=== PATIENT | male | born 1950 | race Hispanic/Latino ===

== ENCOUNTER → 2025-07-31 | Emergency (ER) | payer OTHER, MEDICARE ==
[~2025-07-31] VITALS: Ht 160 cm; Wt 49.9 kg
[2025-07-31 05:51] LABS: IMMATURE GRANULOCYTE ABSOLUTE 0.01 K/uL (0-1); NUCLEATED RED BLOOD CELLS 0.0 % (0.0-0.19); PLATELET COUNT (AUTO) 161 K/uL (130-400); RED BLOOD CELL COUNT(AUTO) 4.39 MIL/uL (4.50-6.20); RED CELL DISTRIBUTION WIDTH 13.2 % (11.0-15.5); WHITE BLOOD COUNT (AUTO) 6.4 K/uL (4.8-10.8)
[2025-07-31 05:58] LABS: CREATININE 0.7 mg/dL (0.5-1.3); GLOMERULAR FILTR. RATE CALC 95.0 mL/min (>90); GLUCOSE,RANDOM 92.0 mg/dL (70-105); SODIUM SERUM 140.0 mmol/L (136-145); UREA NITROGEN, BLOOD 20.0 mg/dL (7-18)
--- NOTE | 2025-07-31 06:05 | ERN ---
General Chief Complaint: Chest Pain Stated Complaint: CHEST PAIN RADIATING TO NECK Time Seen by MD: 05:32 Source: patient History of Present Illness Initial Comments 74-year-old male with history of coronary artery disease and a arrhythmias admitted to hospital in [place] (I think) approximately six months ago with CHF comes to the hospital today because of chest pain that is been unremitting for the last 12 hours and has now radiated down his left arm and right neck. No shortness of breath good oxygenation on room air. He has been compliant with his meds and there has been no changes to his medications. Allergies: Coded Allergies: No Known Allergies (Unverified Allergy, Unknown, 07/18/14) Past Medical History Past Medical History: CAD, CHF, Hypertension Past Surgical History: Other Surgical History Other: [facility] 10/21/2024, NO STENTS Constitutional: (-) chills, (-) diaphoresis, (-) fever, (-) malaise, (-) weakness, (-) other documentation EENTM: (-) eye pain, (-) blurred vision, (-) tearing, (-) double vision, (-) ear pain, (-) ear discharge, (-) nose pain, (-) nose congestion, (-) throat pain, (-) Throat swelling, (-) mouth pain, (-) tooth pain, (-) mouth swelling, (-) other documentation Cardiovascular: (+) chest pain Gastrointestinal/Abdominal: (-) nausea, (-) vomiting, (-) diarrhea, (-) abdominal pain, (-) abdominal distention, (-) constipation, (-) rectal bleeding, (-) dark stool/melena, (-) other documentation Genitourinary: (-) penile discharge, (-) dysuria, (-) frequency, (-) hematuria, (-) pain, (-) other documentation Musculoskeletal: (+) Neck pain Skin: (-) laceration, (-) contusion, (-) abrasion, (-) abscess, (-) rash, (-) change in color, (-) change in hair, (-) change in nails, (-) diaphoresis, (-) dryness, (-) other documentation Physical Exam General Appearance: (+) no apparent distress Orientation: (+) alert, (+) oriented x 3 Head/Face Trauma: No Eye: bilateral eye normal inspection, bilateral eye PERRL, bilateral eye EOMI Ear, Nose, Throat Comment Patient wears hearing aids Neck: (+) normal inspection, (+) no JVD Respiratory: (+) chest non-tender, (+) lungs clear, (+) well ventilated Heart: (+) regular, (+) no gallop Vascular: (+) no edema, (+) normal peripheral pulse Gastrointestinal: (+) soft, (+) non-tender, (+) bowel sound present Results Laboratory and Microbiology Lab and Micro Result Laboratory Tests Test 07/31/25 05:42 White Blood Count 6.4 K/uL (4.8-10.8) Red Blood Count 4.39 MIL/uL (4.50-6.20) L Hemoglobin 13.2 g/dL (14.0-18.0) L Hematocrit 37.9 % (42-54) L Mean Corpuscular Volume 86.3 fL (79-99) Mean Corpuscular Hemoglobin 30.1 pg (27.0-33.0) Mean Corpuscular Hemoglobin Concent 34.8 g/dL (32.0-36.0) Red Cell Distribution Width 13.2 % (11.0-15.5) Platelet Count 161 K/uL (130-400) Mean Platelet Volume 11.3 fL (7.5-10.5) H Immature Granulocyte % (Auto) 0.2 % (0-1) Neutrophils (%) (Auto) 58.6 % (40.0-77.0) Lymphocytes (%) (Auto) 21.9 % (21.0-51.0) Monocytes (%) (Auto) 12.4 % (3.0-13.0) Eosinophils (%) (Auto) 6.0 % (0.0-8.0) Basophils (%) (Auto) 0.9 % (0.0-5.0) Neutrophils # (Auto) 3.7 K/uL (1.8-7.7) Lymphocytes # (Auto) 1.4 K/uL (1.0-4.8) Monocytes # (Auto) 0.8 K/uL (0.1-1.0) Eosinophils # (Auto) 0.38 K/uL (0.00-0.70) Basophils # (Auto) 0.06 K/uL (0.00-0.20) Absolute Immature Granulocyte (auto 0.01 K/uL (0-1) Nucleated Red Blood Cells 0.0 % (0.0-0.19) Sodium Level 140 mmol/L (136-145) Potassium Level 3.9 mmol/L (3.5-5.1) Chloride Level 104 mmol/L (101-111) Carbon Dioxide Level 28 mmol/L (21-32) Blood Urea Nitrogen 20 mg/dL (7-18) H Creatinine 0.7 mg/dL (0.5-1.3) Glomerular Filtration Rate Calc 95 mL/min (>90) Random Glucose 92 mg/dL (70-105) Total Calcium 8.9 mg/dL (8.5-10.1) Troponin I High Sensitivity 53 ng/L (4-75) B-Type Natriuretic Peptide 40 pg/mL (0-100) MDM MDM: Differential diagnosis: Acute CT, dehydration, muscle spasm, GERD, anxiety, Rationale: Tests considered and ordered secondary to shared decision making include: Previous outside records reviewed: Old ER visits. Risk of complication and/or morbidity or mortality of patient management: None Medications-Per medication reconciliation Need for hospitalization: Patient does meet criteria for hospitalization. Need for emergency major/minor surgery: No There are no social concerns with this patient. Prescription drug management Prescriptions will include symptomatic care Patient's prior external medical records from other ER visits were reviewed by me as indicated. Prior testing and results from previous visits were reviewed. Prior tests were taken into account with medical decision making and resource utilization, independent historian/historians were used to obtain complete medical history. I independently interpreted the test that were performed, results were reviewed by me and considered findings on radiology if ordered. Patient feels better with the nor flex in the fluids. His chest x-ray shows no signs of CHF. His chemistry panel is normal troponin and normal BNP. His BUN is 20, otherwise chemistry panel is normal. CBC is normal. EKG showed no ischemic changes. I will discharge the patient home. ED Course Orders Procedure Category Date Status Time 12 Lead Ekg Tracing- EKG 07/31/25 Logged Technical 05:39 Cbc With Differential LAB 07/31/25 Complete 05:39 Basic Metabolic Panel LAB 07/31/25 Complete 05:39 Troponin I High LAB 10/4/25 Complete Sensitivity 05:39 Chest 1vw RAD 07/31/25 Resulted 05:39 B-Type Natriuretic LAB 07/31/25 Complete Peptide 05:39 Urinalysis Profile LAB 07/31/25 Logged 05:39 Lactated Ringers PHA 07/31/25 Complete 1000ml (Lactated 05:39 Orphenadrine Citrate PHA 07/31/25 Complete (Norflex) 06:00 Current Medications Medications (Trade) Dose Ordered Sig/Dashawn Route PRN Reason Start Time Stop Time Status Last Admin Dose Admin Lactated Ringer's (Lactated Ringers 1000ml) 1,000 ml BOLUS STAT IV 07/31/25 05:39 07/31/25 05:56 DC 07/31/25 06:08 Orphenadrine Citrate (Norflex) 60 mg ONCE ONCE IVP 07/31/25 06:00 07/31/25 06:01 DC 07/31/25 06:07 Vital Signs Date Time Temp Pulse Resp B/P (MAP) Pulse Ox O2 Delivery O2 Flow Rate FiO2 07/31/25 06:10 98.8 56 18 142/66 99 Room Air* 0 21 07/31/25 05:24 97.5 63 18 128/72 100 Room Air 0 DX & DISP Disposition: Discharge Departure Impression: Primary Impression: CHEST PAIN NOS Additional Impression: Muscle pain Condition: Stable Additional Instructions: You came in with chest tightness and pain in your left neck and shoulder. Your symptoms have resolved and your laboratory studies are normal. I think it is from mild dehydration based on these symptoms you described and that the fluids I have given you helped resolve your symptoms. In addition, your cardiac workup was negative. Importantly your chest x-ray was normal you are not having a repeat episode of congestive heart failure. You mentioned you have an upcoming appointment with your forwarder operator and I strongly recommend you Please keep your future appointment with your forwarder operator. Referrals: SELF,REFERRAL (PCP) LIN GREEN MD Jul 31, 2025 06:05
[2025-07-31] MEDS: ORPHENADRINE 60MG/2ML IVP ONE (06:07)
[2025-07-31] MEDS: LACTATED RINGERS 1000ML IV STA (06:08)
[2025-07-31 06:10] VITALS: BP 142/66; PULSE 56; RESP 18; TEMP 98.8; O2SAT 99
--- NOTE | 2025-07-31 06:34 | HMCIMG ---
EXAM: CR Chest, single view. CLINICAL HISTORY: Chest pain COMPARISON: Prior chest radiograph dated July 17, 2014. FINDINGS: The lungs show no infiltrate or other acute findings. No pleural effusion or pneumothorax. The cardiomediastinal silhouette is within normal limits. Mild tortuosity of the descending thoracic aorta. Atherosclerotic calcification of the aortic arch. No acute osseous abnormality. IMPRESSION: No acute cardiopulmonary pathology is evident. Compared to the prior study, there is no significant interval change. /[place]
--- NOTE | 2025-07-31 12:04 | EKG ---
[facility] Test Date: 2025-07-31 Test Time: 05:33:46 Pat Name: BERT BEY Department: ED Room: Gender: M Wound Care Coordinator: [id number] : 1950 Requested By: LIN GREEN Order Number: [id number] Reading MD: Monroe Dodson Measurements Intervals [place] Rate: 57 P: 22 [place]: 179 QRS: -116 QRSD: 168 T: 245 QT: 419 QTc: 409 Interpretive Statements Sinus rhythm Right bundle branch block No previous ECG available for comparison ANTEROSEPTAL INFARCT Electronically Signed On 08-01-2025 14:18:20 CDT by Monroe Dodson Please click the below link to view image of tracing.
== END ==
LOC: EDH 05:22
DX: R07.89 Other chest pain (principal); M79.10 Myalgia, unspecified site; I25.10 Atherosclerotic heart disease of native coronary artery without angina pectoris; I11.0 Hypertensive heart disease with heart failure; I50.9 Heart failure, unspecified
CPT/HCPCS: 99285; 96374; 71045; 84484; 80048; 83880; 85025; 36415; 93005; J7120; J2360